=== PATIENT | female | born 1955 | race Caucasian/White ===

== ENCOUNTER 2020-02-11 08:19 | Outpatient (CLI) | payer OTHER ==
[2020-02-11 16:06] LABS: Hemoglobin 14.7 g/dL (12.0-16.0); Mean Corpuscular HGB CONC 34.9 g/dL (32.0-36.0); Mean Corpuscular Hemoglobin 30.8 pg (27.0-31.0); Mean Corpuscular Volume 88.4 fL (78.0-98.0); Mean Platelet Volume 11.2 fL (7.4-10.4); Platelet Count 144 thou/uL (130-400); RBC Distribution Width 11.5 % (11.5-14.5); Red Blood Cell (RBC) Count 4.76 mill/uL (4.20-5.40); White Blood Cell (WBC) Count 4.9 thou/uL (4.8-10.8)
[2020-02-12 12:33] LABS: SARS-CoV-2 MS2 Positive; SARS-CoV-2 N Gene Negative; SARS-CoV-2 S Gene Negative; SARS-CoV-2 by NAA Not Detected (NotDetected); SARS-CoV-2 orf1ab Negative
--- NOTE | 2020-02-14 16:04 | EKG ---
Test Reason : PREOP Blood Pressure : / mmHG Vent. Rate : 070 BPM Atrial Rate : 070 BPM P-R Int : 150 ms QRS Dur : 080 ms QT Int : 434 ms P-R-T Axes : 025 078 067 degrees QTc Int : 468 ms Normal sinus rhythm Normal ECG No previous ECGs available Confirmed by Hong MCGHEE ([id number]) on 02/14/2020 4:04:35 PM Referred By: MARLENE Confirmed By:Hong MCGHEE
== END 2020-02-11 08:20 | disposition home or self-care (01) ==
LOC: LABBT 08:19
PROVIDERS: ATTEND Neurological Surgery
DX: Z01.818 Encounter for other preprocedural examination (principal); M50.122 Cervical disc disorder at C5-C6 level with radiculopathy; Z20.828 Contact with and (suspected) exposure to other viral communicable diseases
CPT/HCPCS: 85027; 87635; 93005; 93010; U0003

== ENCOUNTER 2020-02-11 13:00 | Inpatient (IN) | payer OTHER ==
[2020-02-11 11:40] VITALS: BMI 24.8
--- NOTE | 2020-02-15 15:55 | HP ---
REASON FOR H AND P: Surgery on 02/16/2020. Case #[id number]. HISTORY OF PRESENT ILLNESS: Ms. Shafer is a 64-year-old female with chief complaint of neck and right shoulder, arm pain, for the last four years. She has tried cervical facet injections and physical therapy with no long-lasting benefits or relief. She denies any bladder or bowel dysfunction. REVIEW OF SYSTEMS: CONSTITUTIONAL: Denies fever or chills. ENT: Denies change in vision or hearing. CARDIAC: Denies chest pain, shortness of breath, diaphoresis. PULMONARY: Denies shortness of breath, cough, hemoptysis. GI: Denies abdominal pain, nausea, vomiting, diarrhea, change in stool formation and consistency. : Denies trouble with urination, frequency of urination, bloody urine. SKIN: Denies skin rash, bruising, bleeding, skin masses. MUSCULOSKELETAL: As per history of present illness. NEUROLOGICAL: As per history of present illness. PSYCHOLOGICAL: Denies anxiety, depression, behavior changes. MEDICAL HISTORY: Depression, neck pain. SURGICAL HISTORY: Right elbow, right knee, . HOSPITALIZATION: Denies past hospitalization. FAMILY HISTORY: Father , diagnosed with cancer. Mother alive, diagnosed with heart disease, stroke. SOCIAL HISTORY: Former smoker, quit smoking 26 years ago. Denies illicit drugs or alcohol use. MEDICATIONS: 1. Citalopram 40 mg. 2. Vimovo 375/20 mg. 3. Baclofen 10 mg 4. Tylenol No. 3. 300-30 mg ALLERGIES: CODEINE, SIDE EFFECT NAUSEA. PHYSICAL EXAMINATION: VITAL SIGNS: Weight 151, height 67, BMI 23.68. HEENT: Pupils are equal. Extraocular movements are intact. NECK: Soft, supple. No masses are noted. Range of motion is intact and slightly painful. NEUROLOGICAL: Awake, alert, and oriented x3. Memory, attention, fund of knowledge normal. Cranial nerves grossly intact. Gait and station are normal. Motor exam, mild biceps and triceps weakness. Sensory exam, no new numbness. Cervical exam , positive Spurling's with right shoulder and arm pain. IMAGING: MRI of the C-spine; herniated cervical disk (HCD) at C4-C5, C5-C6, C6- C7. X-ray of the C-spine, flexion-extension stable. ASSESSMENT: 1. Cervical disk disorder at C4-C5 level with radiculopathy. 2. Cervical disk disorder at C6-C7 level with radiculopathy. 3. Cervical disk disorder at C5-C6 level with radiculopathy. 4. Spondylolisthesis at cervical region. PLAN: 1. ACDF of C4, C5, C6, C7. 2. Preop labs: CBC, PT, PTT, COVID-19. 3. Clearance. INFORMED CONSENT: We discussed the indications, risks, benefits, alternatives, and expected results from surgery. The risks discussed included, but were not limited to, bleeding, infection, CSF leak, nerve damage, weakness, swallowing trouble, feeding tube placement, tracheal injury, esophageal injury, vocal cord injury, spinal cord injury, incontinence, paralysis, ventilator dependency, wheelchair dependency, stroke, loss of vision, carotid artery injury, jugular vein injury, hardware misplacement, cardiopulmonary complications of anesthesia, or . Long-term complications discussed included, but were not limited to hardware failure and degeneration of the surrounding disk. She understands the risks and is willing to proceed. Job ID: [id number] [facility]
[2020-02-16] MEDS ORDERED: Thrombin 5000 UNITS/5 ML VIAL ONE (06:10)
[2020-02-16] MEDS ORDERED: Midazolam HCl 2 mg/2 ml Vial ONE (06:45)
[2020-02-16] MEDS ORDERED: Fentanyl 100 MCG/2 ML VIAL ONE ×3 (06:51→13:02)
[2020-02-16] MEDS ORDERED: PHENYLEPHRINE-NS 100 MCG/ML 10 ML SYRINGE ONE ×2 (08:58→09:22)
[2020-02-16] MEDS ORDERED: EPHEDRINE 25 MG/5 ML SYRINGE ONE (09:22)
[2020-02-16] MEDS ORDERED: Rocuronium Bromide 10 MG/ML (10ML VIAL) ONE (09:22)
[2020-02-16] MEDS ORDERED: Ondansetron PF 4 MG/2 ML Vial ONE (09:22)
[2020-02-16] MEDS ORDERED: Ketorolac Tromethamine 30 MG/ML VIAL ONE (09:22)
[2020-02-16] MEDS ORDERED: PROPOFOL 200 MG/20 ML VIAL ONE (09:22)
[2020-02-16] MEDS ORDERED: Dexamethasone 20 MG/5 ML VIAL ONE (09:22)
[2020-02-16] MEDS ORDERED: Lidocaine 1% PF 5 ML VIAL ONE (09:22)
[2020-02-16] MEDS ORDERED: Promethazine HCl 25 MG/ML VIAL SLOW IVP PRN (10:10)
[2020-02-16] MEDS ORDERED: HYDROmorphone 2 MG/ML VIAL SLOW IVP PRN (10:10)
[2020-02-16] MEDS ORDERED: Meperidine HCl/PF 25 MG/ML VIAL SLOW IVP PRN (10:10)
[2020-02-16] MEDS ORDERED: SUGAMMADEX SODIUM 200 MG/2 ML VIAL ONE (10:20)
[2020-02-16] MEDS ORDERED: Morphine 4 MG/ML VIAL ONE (11:48)
[2020-02-16] MEDS ORDERED: Morphine 2 MG/ML VIAL ONE ×4 (12:01→12:37)
[2020-02-16] MEDS ORDERED: HYDROcodone/Acetaminophen 5/325 mg Tablet ONE (14:18)
--- NOTE | 2020-02-17 10:36 | OP ---
DATE OF PROCEDURE: 02/16/2020 [employer] HOME: Josafat Haywood PA-C PREOPERATIVE INDICATION: Treat pain and prevent neurological deterioration. PREOPERATIVE DIAGNOSIS: Cervical foraminal stenosis from intervertebral disk disease and osteophytes, cervical spinal instability. POSTOPERATIVE DIAGNOSIS: Cervical foraminal stenosis from intervertebral disk disease and osteophytes, cervical spinal instability. PROCEDURES PERFORMED: 1. Anterior cervical diskectomy, C4-C5, C5-C6, C6-C7. 2. Intervertebral arthrodesis, C4-C5, C5-C6, C6-C7. 3. Placement of intervertebral biomechanical device, C4-C5, C5-C6, C6-C7. 4. Anterior cervical plating, C4-C5, C5-C6, C6-C7. 5. Local morselized autograft, morselized allograft. 6. Operating microscope. PREOPERATIVE MEDICATIONS: Ancef 2 g IV. DRAIN NUMBER: Zero. DRAIN TYPE: None. DESCRIPTION OF PROCEDURE: The patient was brought to the operating room. General endotracheal anesthesia was induced. The patient was carefully positioned on the operating table with her neck supported by a donut-shaped headrest. A lateral fluoro radiograph was used to plan our incision. The right side of the neck was sterilely prepped and draped. We opened our incision with a 10 blade knife and we controlled bleeding with bipolar cautery. We dissected sharply to the platysma and we cut this muscle in line with our incision. We continued our dissection medial to the sternocleidomastoid lateral to the trachea and esophagus and we arrived at the prevertebral space. We placed a marker at C4-C5 and took a lateral fluoro radiograph to confirm the levels upon which we were operating. We elevated the longus colli muscles off the anterior surface of C4, C5, C6, and C7. We placed self-retaining retractors beneath them. Distraction pins were placed at C4 and C6 and we distracted across both of the intervening interspaces. We removed anterior osteophytes with Stille rongeurs and then removed disk material using curettes and rongeurs. The operating microscope was brought in the field. Under microscopic magnification and using microsurgical techniques, we removed the remainder of the intervertebral disk. Using the microcurette, we accessed the ventral epidural space. Using Kerrison rongeurs, we removed posterior osteophytes and posterior longitudinal ligament across the entire interspace from one neural foramen to the other until the dura was well decompressed throughout. This was done at C4-C5 and C5-C6. We turned our attention to arthrodesis. The endplates were prepared for grafting with curettes and a bone rasp was used to measure the height of each of these interspaces to 6 mm. Two separate 6 mm intervertebral grafts were brought into the field. These were PEEK intervertebral grafts, which were not part of an anterior cervical plating system, but rather stand-alone devices. These were loaded with demineralized bone matrix and morselized autograft. The autograft was obtained from our osteophytectomies. This bone was cleaned of soft tissue attachments, morselized and added into demineralized bone matrix to form our fusion substrate. The PEEK grafts when they were loaded with our fusion material were advanced into their respective interspaces under radiographic guidance to the appropriate depth. We then moved the distraction pin from C4 to C7. We distracted across the C6-C7 interspace. In a similar fashion to what we had done above, we removed disk material and removed posterior osteophytes and posterior longitudinal ligament and decompressed the dura from one neural foramen all the way to the other. We prepared the endplates for grafting using curettes and a bone rasp. This interspace measured 7 mm in height. A 7-mm PEEK graft was brought into the field, loaded with demineralized bone matrix and morselized autograft and advanced into the interspace under radiographic guidance to the appropriate depth. We irrigated bacitracin irrigation. We removed the operating microscope. A 45 mm anterior cervical plate was brought into the field. This was a separate device from all the interbody grafts. We drilled commercial drone pilot holes through the plate into the vertebral bodies from C4 to C7. We affixed the plate using 14 mm screws. Fixed angle screws were used at C7 and variable angle screws at C6, C5, and C4. We engaged the locking mechanism over each of the eight screws. AP and lateral fluoro radiographs confirmed adequate positioning of our instrumentation. We closed the wound in anatomical layers and we applied a sterile dressing after copious amounts of bacitracin irrigation. Job ID: [id number]
== END 2020-02-16 15:50 | disposition home or self-care (01) | DRG 473 ==
LOC: SURG A 02-16 05:42
PROVIDERS: ADMIT Neurological Surgery; ATTEND Neurological Surgery
PROC: 0RG20A0 Fusion of 2 or more Cervical Vertebral Joints with Interbody Fusion Device, Anterior Approach, Anterior Column, Open Approach (ICD-10-PCS; principal; 2020-02-16)
PROC: 0RB30ZZ Excision of Cervical Vertebral Disc, Open Approach (ICD-10-PCS; 2020-02-16)
PROC: 01N10ZZ Release Cervical Nerve, Open Approach (ICD-10-PCS; 2020-02-16)
DX: M48.02 Spinal stenosis, cervical region (principal); M53.2X2 Spinal instabilities, cervical region; M50.321 Other cervical disc degeneration at C4-C5 level; F32.9 Major depressive disorder, single episode, unspecified; M50.121 Cervical disc disorder at C4-C5 level with radiculopathy; Z20.828 Contact with and (suspected) exposure to other viral communicable diseases; M53.1 Cervicobrachial syndrome; K21.9 Gastro-esophageal reflux disease without esophagitis; M47.22 Other spondylosis with radiculopathy, cervical region; Z79.899 Other long term (current) drug therapy; Z87.891 Personal history of nicotine dependence; Z88.5 Allergy status to narcotic agent
CPT/HCPCS: 76000; J0690; J1100; J1885; J2250; J2270; J2405; J2704; J3010; J3490

== ENCOUNTER 2021-12-14 09:51 | Outpatient (CLI) | payer MEDICARE, OTHER | END 2021-12-14 09:52 | disposition home or self-care (01) | LOC: TBSIIMAG 09:51 | PROVIDERS: ATTEND Neurological Surgery | DX: M54.12 Radiculopathy, cervical region (principal); M53.3 Sacrococcygeal disorders, not elsewhere classified; Z98.1 Arthrodesis status | CPT/HCPCS: 72040; 72100 ==